=== PATIENT | female | born 1950 | race Caucasian/White ===

== ENCOUNTER → 2017-12-10 01:44 | Outpatient (CLI) | payer MEDICARE, MEDICAID, SELFPAY ==
[2017-12-10 13:16] LABS: TSH 0.63 uIU/mL (0.358-3.74)
== END ==
PROVIDERS: PCP Family Medicine; Visit Provider Family Medicine
DX: E03.9 Hypothyroidism, unspecified (principal)
CPT/HCPCS: 36415; 84443

== ENCOUNTER 2018-08-24 04:24 | Outpatient (CLI) | payer MEDICARE, SELFPAY ==
[2018-08-24 11:18] LABS: Iron 119 ug/dL (50-175); Total Iron Binding Capacity 261 ug/dL (250-450); Transferrin Sat 46 % (15-50)
[2018-08-24 11:39] LABS: ALT 39 U/L (12-78); AST 29 U/L (15-37); Albumin 3.9 g/dL (3.4-5.0); Alkaline Phosphatase 141 U/L (46-116); Anion Gap 8.7 mmol/L (3-11); BUN 14 mg/dL (7-18); Bilirubin, Total 0.2 mg/dL (0.2-1.0); CO2 27.3 mmol/L (21.0-32.0); CREATININE 0.82 mg/dL (0.55-1.02); Calcium 9.7 mg/dL (8.5-10.1); Chloride 103 mmol/L (98-107); Ferritin 222 ng/mL (8-388); GGT 153 U/L (5-55); Glucose 90 mg/dL (70-100); Potassium 4.2 mmol/L (3.5-5.1); Sodium 139 mmol/L (136-145); TSH 0.71 uIU/mL (0.358-3.74); Total Protein 7.2 g/dL (6.4-8.2)
[2018-08-24 21:51] LABS: T3, Total 183 ng/dl (97-169)
[2018-08-25 09:27] LABS: Alpha 1 Antitrypsin,Serum 129 mg/dL (90-200); Transferrin 210 mg/dL (201-352)
== END 2018-08-24 04:44 ==
PROVIDERS: PCP Family Medicine; Visit Provider Family Medicine
DX: R74.0 Nonspecific elevation of levels of transaminase and lactic acid dehydrogenase [LDH] (principal); E03.9 Hypothyroidism, unspecified
CPT/HCPCS: 36415; 80053; 82103; 82728; 82977; 83540; 83550; 84443; 84466; 84480

== ENCOUNTER 2019-05-17 11:39 | Outpatient (CLI) | payer MEDICARE, SELFPAY ==
[2019-05-17 13:30] LABS: FREE T4 1.17 ng/dL (0.76-1.46); TSH 0.63 uIU/mL (0.36-3.74)
[2019-05-17 14:34] LABS: Vitamin D 25 Total 26.4 ng/ml (30-100)
[2019-05-17 17:02] LABS: T3, Total 170 ng/dL (97-169)
== END 2019-05-17 11:59 ==
PROVIDERS: PCP Family Medicine; Visit Provider Family Medicine
DX: E03.9 Hypothyroidism, unspecified (principal); E55.9 Vitamin D deficiency, unspecified; R79.89 Other specified abnormal findings of blood chemistry
CPT/HCPCS: 36415; 82306; 84439; 84443; 84480

== ENCOUNTER 2020-06-26 09:26 | Outpatient (CLI) | payer MEDICARE, MEDICAID, SELFPAY ==
[2020-06-27 12:48] LABS: COVID-19 RT-PCR UVMMC Result Negative (Negative)
== END 2020-06-26 09:27 | disposition home or self-care (01) ==
LOC: LBO 09:26
PROVIDERS: PCP Family Medicine; Visit Provider Family Medicine
DX: Z20.822 Contact with and (suspected) exposure to COVID-19 (principal)
CPT/HCPCS: U0003; U0005

== ENCOUNTER 2020-07-10 03:42 | Outpatient (CLI) | payer MEDICARE, MEDICAID, SELFPAY ==
[2020-07-10 11:33] LABS: ALT 68 U/L (14-59); AST 39 U/L (15-37); Albumin 3.9 g/dL (3.4-5.0); Alkaline Phosphatase 220 U/L (46-116); Anion Gap 7.3 mmol/L (3-11); BUN 13 mg/dL (7-18); Bilirubin, Total 0.3 mg/dL (0.2-1.0); CO2 29.7 mmol/L (21.0-32.0); CREATININE 0.8 mg/dL (0.55-1.02); Calcium 9.2 mg/dL (8.5-10.1); Calculated LDL 142 mg/dL (<100); Chloride 106 mmol/L (98-107); Cholesterol 239 mg/dL (<200); GGT 335 U/L (5-55); Glucose 89 mg/dL (74-106); HDL Cholesterol 68 mg/dL (40-60); Potassium 4.2 mmol/L (3.5-5.1); Sodium 143 mmol/L (136-145); TSH 2.18 uIU/mL (0.36-3.74); Total Protein 7.4 g/dL (6.4-8.2); Triglyceride 149 mg/dL (<150)
[2020-07-10 11:45] LABS: Vitamin D 25 Total 24.2 ng/ml (30-100)
[2020-07-10 11:47] LABS: Bilirubin, Direct 0.1 mg/dL (0.0-0.2)
== END 2020-07-10 03:43 | disposition home or self-care (01) ==
LOC: LBO 03:42
PROVIDERS: PCP Family Medicine; Visit Provider Family Medicine
DX: E03.9 Hypothyroidism, unspecified (principal); E55.9 Vitamin D deficiency, unspecified; R94.5 Abnormal results of liver function studies
CPT/HCPCS: 80053; 80061; 80076; 82306; 82977; 84443

== ENCOUNTER 2020-08-10 03:25 | Outpatient (CLI) | payer MEDICARE, MEDICAID, SELFPAY ==
[2020-08-11 10:01] LABS: COVID-19 RT-PCR UVMMC Result Negative (Negative)
== END 2020-08-10 03:26 | disposition home or self-care (01) ==
PROVIDERS: PCP Family Medicine; Visit Provider Family Medicine
DX: Z20.822 Contact with and (suspected) exposure to COVID-19 (principal)
CPT/HCPCS: U0003; U0005

== ENCOUNTER 2021-08-27 01:33 | Outpatient (CLI) | payer MEDICARE, MEDICAID, SELFPAY ==
[2021-08-27 09:51] LABS: ALT 82 U/L (14-59); AST 44 U/L (15-37); Albumin 4.2 g/dL (3.4-5.0); Alkaline Phosphatase 213 U/L (46-116); Anion Gap 5.6 mmol/L (3-11); BUN 15 mg/dL (7-18); Bilirubin, Total 0.3 mg/dL (0.2-1.0); CO2 30.4 mmol/L (21.0-32.0); CREATININE 0.9 mg/dL (0.55-1.02); Calcium 9.4 mg/dL (8.5-10.1); Chloride 103 mmol/L (98-107); GGT 221 U/L (5-55); Glucose 88 mg/dL (74-106); Potassium 4.2 mmol/L (3.5-5.1); Sodium 139 mmol/L (136-145); TSH (W/Ref FT4) 0.63 uIU/mL (0.36-3.74); Total Protein 7.6 g/dL (6.4-8.2)
== END 2021-08-27 01:34 | disposition home or self-care (01) ==
LOC: LBO 01:34
DX: E78.2 Mixed hyperlipidemia (principal); R94.5 Abnormal results of liver function studies; E03.9 Hypothyroidism, unspecified; G47.00 Insomnia, unspecified; F41.8 Other specified anxiety disorders
CPT/HCPCS: 36415; 80053; 82977; 84443

== ENCOUNTER → 2021-10-12 00:15 | Outpatient (CLI) | payer MEDICARE, MEDICAID, SELFPAY ==
--- NOTE | 2021-10-12 07:15 | DI.US_ITS ---
Exam(s) US ABDOMEN EXAM: US ABDOMEN CLINICAL HISTORY: Chronic elevated LFTs, GGT, no alcohol, 24lb loss,r94.5 TECHNIQUE: Ultrasound abdomen performed using standard protocol. COMPARISON: US ABDOMEN ULTRASOUND (P) from 05/05/2014 FINDINGS: ABDOMINAL AORTA AND IVC: Visualized portions normal caliber. PANCREAS: Normal where visualized. LIVER: Normal. Hepatopedal flow in the Portal Vein. GALLBLADDER:No evidence of cholelithiasis. No evidence of wall thickening. No pericholecystic fluid i dentified. BILIARY SYSTEM: Common bile duct measures < 7 mm. No intrahepatic biliary ductal dilation. GONZALEZ'S SIGN: Negative. KIDNEYS: Kidneys are symmetric in size. No evidence of renal calculi. No evidence of hydronephrosis. No renal mass or cyst identified. SPLEEN: Not enlarged. ASCITES: None seen. IMPRESSION: Normal sonographic appearance of the upper abdomen. DATA REPOSITORY:
== END ==
DX: R94.5 Abnormal results of liver function studies (principal)
CPT/HCPCS: 76700

== ENCOUNTER 2022-01-17 19:07 | Outpatient (REF) | payer MEDICARE, SELFPAY ==
[2022-01-17 19:18] LABS: ALT 55 U/L (14-59); AST 35 U/L (15-37); Albumin 4.1 g/dL (3.4-5.0); Alkaline Phosphatase 179 U/L (46-116); Bilirubin, Direct 0.1 mg/dL (0.0-0.2); Bilirubin, Total 0.3 mg/dL (0.2-1.0); Total Protein 7.7 g/dL (6.4-8.2)
[2022-01-17 19:43] LABS: Bilirubin Negative (Negative); Blood Negative (Negative); Clarity Clear (Clear); Glucose Negative (Negative); Ketones Negative (Negative); Leukocyte Esterase Negative (Negative); Nitrite Negative (Negative); Urobilinogen 0.2 EU/dL (Up TO 0.2)
== END 2022-01-17 19:08 | disposition home or self-care (01) ==
LOC: NCHCN 19:07
PROVIDERS: Visit Provider Nurse Practitioner Family
DX: R79.89 Other specified abnormal findings of blood chemistry (principal); R30.0 Dysuria
CPT/HCPCS: 80076; 81003

== ENCOUNTER 2022-02-18 19:06 | Outpatient (REF) | payer MEDICARE, SELFPAY ==
[2022-02-18 20:49] LABS: TSH (W/Ref FT4) 0.39 uIU/mL (0.36-3.74)
== END 2022-02-18 19:07 | disposition home or self-care (01) ==
LOC: NCHCN 19:06
PROVIDERS: Visit Provider Nurse Practitioner Family
DX: E03.9 Hypothyroidism, unspecified (principal)
CPT/HCPCS: 84443

== ENCOUNTER 2022-04-08 14:13 | Outpatient (REF) | payer MEDICARE, SELFPAY ==
[2022-04-08 19:34] LABS: TSH 0.45 uIU/mL (0.36-3.74)
== END 2022-04-08 14:14 | disposition home or self-care (01) ==
LOC: NCHCN 14:13
PROVIDERS: Visit Provider Nurse Practitioner Family
DX: E03.9 Hypothyroidism, unspecified (principal)
CPT/HCPCS: 84443

== ENCOUNTER 2022-05-15 17:37 | Outpatient (REF) | payer MEDICARE, SELFPAY ==
[2022-05-15 21:39] LABS: HGB 12.2 g/dL (11.2-15.7); MCH 30.6 pg (27.0-33.0); MCHC 33.9 % (32.0-36.0); MCV 90 fL (80-95); MPV 11.6 fL (8.0-11.0); Platelet Count 229 10^3/uL (130-400); RBC 3.99 10^6/uL (3.93-5.22); RDW 12.2 % (11.7-14.6); RDW-SD 40.5 fL; WBC 3.48 10^3/uL (4.4-10.8)
[2022-05-15 21:59] LABS: ALT 107 U/L (14-59); Albumin 4.1 g/dL (3.4-5.0); Alkaline Phosphatase 190 U/L (46-116); Anion Gap 8.3 mmol/L (3-11); BUN 17 mg/dL (7-18); CO2 27.7 mmol/L (21.0-32.0); CREATININE 0.8 mg/dL (0.55-1.02); Calcium 9.7 mg/dL (8.5-10.1); Chloride 101 mmol/L (98-107); Estimated GFR 79.71 (mL/min/1.73m2); Glucose 92 mg/dL (74-106); Potassium 4.4 mmol/L (3.5-5.1); Sodium 137 mmol/L (136-145); Total Protein 7.7 g/dL (6.4-8.2)
[2022-05-15 22:55] LABS: AST 67 U/L (15-37); Bilirubin, Direct 0.1 mg/dL (0.0-0.2); Bilirubin, Total 0.3 mg/dL (0.2-1.0)
[2022-05-20 12:14] LABS: IgA 202 mg/dL (85-499); Interpretation (See Note); Tissue Transglutaminase IgA <1.2 U/mL (<4.0)
== END 2022-05-15 17:38 | disposition home or self-care (01) ==
LOC: NCHCN 17:37
PROVIDERS: Visit Provider Nurse Practitioner Family
DX: R14.0 Abdominal distension (gaseous) (principal); R63.4 Abnormal weight loss; R79.89 Other specified abnormal findings of blood chemistry
CPT/HCPCS: 80048; 80076; 82784; 83516; 85027

== ENCOUNTER 2022-06-11 14:42 | Outpatient (REF) | payer MEDICARE, MEDICAID, SELFPAY ==
[2022-06-11 19:08] LABS: Bilirubin Negative (Negative); Blood Negative (Negative); Clarity Clear (Clear); Glucose Negative (Negative); Ketones Negative (Negative); Leukocyte Esterase Negative (Negative); Nitrite Negative (Negative); Specific Gravity 1.015 (1.005-1.025); Urobilinogen 0.2 mg/dL (Up to 0.2)
== END 2022-06-11 14:43 | disposition home or self-care (01) ==
LOC: NCHCN 14:42
PROVIDERS: Visit Provider Nurse Practitioner Family
DX: R35.0 Frequency of micturition (principal)
CPT/HCPCS: 81003

== ENCOUNTER 2022-07-11 19:48 | Outpatient (REF) | payer MEDICARE, MEDICAID, SELFPAY ==
[2022-07-11 20:44] LABS: Vitamin D 25 Total 19.2 ng/mL (30-100)
[2022-07-11 20:49] LABS: Vitamin B12 928 pg/mL (193-986)
[2022-07-15 13:17] LABS: Lyme Ab w Rflx to Lyme Confirm Negative (Negative)
[2022-07-15 15:34] LABS: Anaplasma phagocytophilum Negative (Negative); B. miyamotoi PCR Negative (Negative); Babesia divergens/MO-1 Negative (Negative); Babesia duncani Negative (Negative); Babesia microti Negative (Negative); Ehrlichia chaffeensis Negative (Negative); Ehrlichia ewingii/canis Negative (Negative); Ehrlichia muris eauclairensis Negative (Negative)
== END 2022-07-11 19:49 | disposition home or self-care (01) ==
LOC: NCHCN 19:48
PROVIDERS: Visit Provider Nurse Practitioner Family
DX: R53.83 Other fatigue (principal); M79.7 Fibromyalgia
CPT/HCPCS: 82306; 87798; 82607; 86618

== ENCOUNTER 2022-07-25 11:01 | Outpatient (REF) | payer MEDICARE, MEDICAID, SELFPAY | END 2022-07-25 11:02 | disposition home or self-care (01) | LOC: LBN 11:01 | PROVIDERS: Visit Provider Obstetrics & Gynecology | DX: N89.8 Other specified noninflammatory disorders of vagina (principal) | CPT/HCPCS: 87480; 87510; 87660 ==